=== PATIENT | female | born 1990 ===

== ENCOUNTER 2020-03-23 17:36 | Emergency (ER) | END 2020-03-23 18:59 | disposition left against medical advice (07) | LOC: ERS 17:36 | DX: M54.5 Low back pain (principal); M54.2 Cervicalgia; F41.9 Anxiety disorder, unspecified; F32.9 Major depressive disorder, single episode, unspecified; G43.909 Migraine, unspecified, not intractable, without status migrainosus; Z79.899 Other long term (current) drug therapy; V89.2XXA Person injured in unspecified motor-vehicle accident, traffic, initial encounter ==